=== PATIENT | female | born 1995 | race Caucasian/White ===

== ENCOUNTER 2022-10-22 11:19 | Emergency (ER) | payer OTHER, SELFPAY ==
[2022-10-22 11:23] VITALS: BP 125/80; PULSE 99; RESP 18; TEMP 36.6; O2SAT 100
[2022-10-22 15:15] LABS: Basophils Absolute Auto 0.1 K/mm3 (0.0-0.1); Basophils Percent Auto 1.1 % (0.2-1.2); Eosinophils Absolute Auto 0.3 K/mm3 (0-0.3); Eosinophils Percent Auto 4.3 % (0-4.4); Hematocrit 43.2 % (37.0-47.0); Hemoglobin 14.6 g/dL (12.0-15.0); Immature Granulocyte Absolute 0.01 K/mm3 (0.00-0.031); Immature Granulocyte Percent A 0.1 % (0-0.5); Lymphocytes Absolute Auto 1.65 K/mm3 (0.9-3.2); Lymphocytes Percent Auto 23.4 % (18.3-44.2); Mean Corpuscular HGB Conc 33.8 g/dl (32-36); Mean Corpuscular Hemoglobin 31.4 pg (26-34); Mean Corpuscular Volume 92.9 fl (80-100); Mean Platelet Volume 9.2 fl (7.4-10.4); Monocytes Absolute Auto 0.7 K/mm3 (0.1-0.6); Monocytes Percent Auto 9.5 % (2.6-8.5); Neutrophils Absolute Auto 4.3 K/mm3 (1.3-6.7); Neutrophils Percent Auto 61.6 % (45.5-73.1); Platelet Count Result 238 k/mm3 (150-375); Red Blood Count 4.65 M/mm3 (4.2-5.4); Red Cell Distribution Width 12.4 % (11.5-14.5)
[2022-10-22 15:16] LABS: Fractional Inspired Oxygen 21 %; HCO3 VBG 25.3 mEq/l (24.0-30.0); PCO2 VBG 47.1 mmHg (42.0-48.0); pH VBG 7.348 (7.300-7.400)
--- NOTE | 2022-10-22 15:18 | ED.WOUNDLAC ---
HPI - Wound/Laceration General Chief Complaint: Wound/Laceration Stated Complaint: wound Time Seen by Provider: 10/22/22 14:48 Source: patient, RN notes reviewed and old records reviewed Mode of arrival: ambulatory Limitations: no limitations History of Present Illness HPI narrative: THis is a 27 year old female with history insulin dependent diabetes who presents for evaluation of left facial lump and nausea and vomiting. Patient has noticed a lump to her left face for 1 year. She reports over the past week this lump has become red with increased swelling. She was evaluated on Saturday and diagnosed with infected cyst. She was started on bactrim. She reports she developed frontal headache with nausea and vomiting yesterday. She denies fever or chills. She reports her blood sugar has been under control. She has appointment with surgeon this week as well Related Data Home Medications Medication Instructions Recorded Confirmed blood-glucose transmitter (Dexcom 01/11/22 07/27/22 G6 Transmitter device) insulin lispro 100 unit/mL 1 sliding scale dose subcut 01/11/22 07/27/22 subcutaneous pen (Humalog KwikPen USEASDIRECTD (U-100) Insulin) insulin pump controller (Omnipod 01/11/22 07/27/22 DASH PDM Kit (Gen 4)) trazodone 50 mg tablet 50 mg PO QHS PRN 01/11/22 07/27/22 Allergies Allergy/AdvReac Type Severity Reaction Status Date / Time No Known Allergies Allergy Verified 10/22/22 13:43 Review of Systems Constitutional: Constitutional: Denies weakness Cardiovascular: Cardiovascular: Denies syncope, Denies rapid heart rate, Denies irregular heart rhythm, Denies leg edema and Denies dyspnea Respiratory: Respiratory: Denies chest congestion, Denies hemoptysis, Denies excessive phlegm production and Denies dyspnea Gastrointestinal: Gastrointestinal: Denies abdominal pain, Denies hematochezia, Denies diarrhea, Reports nausea and Reports vomiting Genitourinary: Genitourinary: Denies hematuria and Denies dysuria Musculoskeletal: Musculoskeletal: Denies joint swelling, Denies loss of height and Denies muscle weakness Neurologic: Denies syncope, Reports headache(s), Denies focal weakness and Denies weakness PMFSH Past Medical History Medical History Anxiety Diabetes Fan's thyroiditis PCOS (polycystic ovarian syndrome) Family History Family History Other Emphysema lung Hypertension Schizophrenia Social History Social History Smoking status: Former smoker Tobacco type: cigarettes Smoking end date: 12/07/21 Alcohol intake: never Substance use: current Substance use type: marijuana Other substance usage details: daily Living arrangements: with friend(s) Additional living arrangements comments: boyfriend Occupation/Education: occupation Additional occupation/education comments: daycare worker Gender identity (if verbalized by the patient): Female Sexual Orientation (if Verbalized by the Patient): Bisexual Exam Const: General: no acute distress and alert Nutritional Appearance: well nourished Orientation/consciousness: patient oriented x3 HENMT: Face/Nose/Sinus: Normal external nose present Mouth: Yes Normal oral and palatal mucosa present, Yes lip normal and Yes moist mucous membranes Teeth and gingiva: dentition normal and abnormal tooth and associated gingiva Eyes: Pupils: Equal, round and reactive pupils present EOM: EOMs intact bilaterally Other: left red cyst to left of left eye brow, 2 cm, soft fluctuant Chest: Chest palpation & inspection: normal inspection of the chest Resp: Effort & Inspection: normal respiratory effort Auscultation: clear to auscultation bilaterally Cardio: Rate: regular rate Rhythm: regular rhythm Heart sounds: no murmurs GI: GI Palp: Yes Soft to palpation, No Te
[2022-10-22 15:19] LABS: PO2 VBG < 27.0 mmHg (35.0-45.0)
[2022-10-22] MEDS: SODIUM CHLORIDE 0.9% IV 1,000 ML 999 ML IV CONT (15:20)
[2022-10-22] MEDS: PROCHLORPERAZINE EDISYLATE 10 MG/2 ML VIAL IV PUSH (15:21)
[2022-10-22 15:27] LABS: Alanine Aminotransferase 26 U/L (6-35); Albumin Level 4.7 g/dL (3.5-5.1); Alkaline Phosphatase 56 U/L (38-126); Anion Gap 8 mmol/L (8-16); Aspartate Amino Transferase 33 U/L (14-36); Bilirubin,Total 0.8 mg/dL (0.2-1.3); Blood Urea Nitrogen 13 mg/dL (7-17); Calcium 9.4 mg/dL (8.4-10.2); Carbon Dioxide 29 mmol/L (22-30); Chloride 100 mmol/L (98-107); Estimated CRCL calculation 94 ml/min; Estimated Glomerular Filt Rate > 60; Glucose 105 mg/dL (65-110); Potassium 4.4 mmol/L (3.4-5.0); Sodium 137 mmol/L (137-145)
[2022-10-22 15:39] LABS: Appearance Urine Cloudy (Clear); Bacteria Urine 2+ /hpf; Bilirubin Urine Negative (Negative); Blood Urine Negative (Negative); Color Urine Yellow (Yellow); Glucose Urine UA Negative (Negative); Ketones Urine 2+ mg/dL (Negative); Leukocyte Esterase Ur 2+ LEU/UL (Negative); Need Manual Microscopic Reviewed; Nitrate Urine Negative (Negative); Non Pathogenic Casts 0-2; Protein Urine Negative (Negative); RBC Urine 0-2 /hpf (0-2); Specific Grav Ur 1.021 (1.001-1.035); Squamous Epithelial Cell Urine Moderate /hpf (Few); Urobilinogen Urine 0.2 mg/dL (<2.0); WBC Urine 21-50 /hpf; pH Urine 5.5 (5.0-9.0)
[2022-10-22 15:40] LABS: Add Urine Microscopic? YES
== END 2022-10-22 16:25 | disposition left against medical advice (07) ==
PROVIDERS: Emergency Provider General Practice; PCP Nurse Practitioner Family
DX: L72.3 Sebaceous cyst (principal); F41.9 Anxiety disorder, unspecified; E11.9 Type 2 diabetes mellitus without complications; Z79.4 Long term (current) use of insulin; E06.3 Autoimmune thyroiditis
CPT/HCPCS: 36415; 80053; 81001; 81025; 82803; 85025; 87086; 96361; 96374; 99284; J0780; J7030